=== PATIENT | female | born 1975 | race Caucasian/White ===

== ENCOUNTER 2022-05-13 20:39 | Emergency (ER) | payer OTHER ==
[2022-05-13 20:56] VITALS: BP 134/75; PULSE 70; RESP 19; TEMP 98.6; BMI 25.4
[2022-05-14] MEDS ORDERED: LIDOCAINE HCL 2% JELLY 11 ML TP ONE (00:33)
[2022-05-14] MEDS ORDERED: LIDOCAINE HCL 2% JELLY 10 ML CARTRIDGE TP ONE (00:44)
== END 2022-05-14 02:01 | disposition home or self-care (01) ==
LOC: JER 20:39 → JERFT 20:39 → JER 05-14 02:01
DX: T16.1XXA Foreign body in right ear, initial encounter (principal)
CPT/HCPCS: 99283-25